=== PATIENT | female | born 1995 | race Caucasian/White ===

== ENCOUNTER 2019-10-14 15:18 | Emergency (ER) | payer OTHER ==
[~2019-10-14] VITALS: Ht 154.9 cm; Wt 54.4 kg
== END 2019-10-14 17:28 | disposition home or self-care (01) ==
LOC: ER 15:18
DX: N34.1 Nonspecific urethritis (principal)

== ENCOUNTER 2020-04-10 17:24 | Outpatient (CLI) | payer OTHER | END 2020-04-10 17:28 | disposition home or self-care (01) | LOC: RAD 17:24 | DX: R05 Cough (principal) ==

== ENCOUNTER 2020-12-05 09:00 | Outpatient (CLI) | payer OTHER | END 2020-12-05 09:30 | disposition home or self-care (01) | LOC: PPH VACUNA 09:00 | PROVIDERS: ATTEND Emergency Medicine Pediatric Emergency Medicine | DX: Z23 Encounter for immunization (principal) ==

== ENCOUNTER 2024-10-04 16:38 | Inpatient (IN) | payer OTHER ==
[~2024-10-04] VITALS: Ht 162.6 cm; Wt 54.4 kg
--- NOTE | 2024-10-04 16:54 | NUR ---
SE RECIBE PTE ALERTA Y ORIENTADA X3. REFIERE ARDOR Y DOLOR AL ORINAR Y MOLESTIA PELVICA HACE DOS RICHARDS
[2024-10-04] MEDS ORDERED: 0.9 % SODIUM CHLORIDE 1,000 ML IV ONE (19:45)
[2024-10-04] MEDS ORDERED: FAMOtidine 10 MG/ML (4ML VIAL) IV ONE (19:45)
[2024-10-04] MEDS ORDERED: ONDANSETRON HCL 2 MG/ML VIAL IV ONE (19:45)
[2024-10-04 21:38] LABS: URINE APPEARANCE Clear; URINE BILIRRUBIN Negative (NEGATIVE); URINE BLOOD Trace; URINE COLOR Yellow; URINE GLUCOSE Negative (NEGATIVE); URINE LEUKOCYTE Negative; URINE NITRATE Negative; URINE PROTEIN Negative (NEGATIVE); URINE UROBILINOGEN 0.2 E.U./dl
[2024-10-04 21:42] LABS: URINE BACTERIA 136.7 uL (0.0-1933); URINE EPITHELIAL CELLS 8.1 uL (0.0-38.8); URINE RBC 4.3 uL (0.0-20.8); URINE WBC 4.1 uL (0.0-23.2)
[2024-10-04 21:42] LABS: BASO % 0.4 % (0.1-1.2); EOS # 0.03 (0.04-0.54); EOS % 0.3 % (0.7-7.0); LYMPH # 2.40 (1.18-3.74); LYMPH % 21.4 % (19.3-53.1); MEAN PLATELET VOLUME 10.00 fl (9.4-12.4); MONO # 0.98 (0.24-0.82); MONO % 8.7 % (4.7-12.5); NEUT # 7.74 (1.56-6.13); NEUT % 68.9 % (34.0-71.1); RED CELL DISTRIBUTION WIDTH 14.2 % (11.6-14.4)
[2024-10-04 21:55] LABS: URINE CAST 0.00 uL (0.0-1.40); URINE KETONE 80 (NEGATIVE)
[2024-10-04 22:06] LABS: ALT/SGPT 22.0 U/L (12-78); AST/SGOT 35.0 U/L (15-37); BILIRUBIN TOTAL 1.53 mg/dL (0.3-1.2); BUN CREA RATIO 10.0 (7.0-25.0); CREATININE SERUM 0.7 mg/dL (0.55-1.02); GFR 98.93; GLOBULINA 3.9 G/DL (2.4-3.5); GLUCOSE FASTING 91.0 mg/dL (65-100); OSMOLALITY SERUM 271.0 MOSM/KG (275-295)
--- NOTE | 2024-10-04 22:50 | NUR ---
SE ORIENTA A PTE SOBRE [place] MEDICO, LA MISMA REFIERE ENTENDER Y ACEPTAR SOHAIL. SE COLECTAN MUESTRAS DE LABORATORIO BAJO MEDIDAS ASEPTICAS. SE CANALIZA A PTE RA #20 SANJUANITA DE EDEMA Y ERITEMA CON UN .9NSS BAJANDO A 250ML/HR. SE ADMINISTRAN MEDICAMENTOS TRUDY ORDEN MEDICA.
[2024-10-05 01:16] VITALS: BP 120/76
[2024-10-05] MEDS ORDERED: RINGERS SOLUTION,LACTATED 1,000 ML IV ONE (02:30)
[2024-10-05] MEDS ORDERED: KETOROLAC TROMETHAMINE 30 MG VIAL IV STA (02:31)
[2024-10-05 04:15] LABS: INR 1.17
[2024-10-05 04:25] LABS: BASO % 0.4 % (0.1-1.2); EOS # 0.07 (0.04-0.54); EOS % 0.7 % (0.7-7.0); LYMPH # 2.72 (1.18-3.74); LYMPH % 27.0 % (19.3-53.1); MEAN PLATELET VOLUME 10.30 fl (9.4-12.4); MONO # 0.86 (0.24-0.82); MONO % 8.5 % (4.7-12.5); NEUT # 6.36 (1.56-6.13); NEUT % 63.1 % (34.0-71.1); RED CELL DISTRIBUTION WIDTH 14.4 % (11.6-14.4)
[2024-10-05 05:41] LABS: LYMPHOCYTE MAN 17.0 %; MONOCYTE MAN 10.0 %; NEUTROPHILS MAN 66.0 %
[2024-10-05 07:46] VITALS: BP 96/62; O2SAT 99
[2024-10-05] MEDS ORDERED: CEFAZOLIN SODIUM 1,000 MG VIAL IV ONE (10:00)
[2024-10-05] MEDS ORDERED: MORPHINE SULFATE 4 MG/ML VIAL IV ONE (12:15)
[2024-10-05] MEDS ORDERED: MORPHINE SULFATE 4 MG/ML CARTRIDGE IV SCH (13:00)
[2024-10-05] MEDS ORDERED: KETOROLAC TROMETHAMINE 30 MG VIAL IV ONE (16:00)
[2024-10-05 17:00] LABS: BASO % 0.3 % (0.1-1.2); EOS # 0.03 (0.04-0.54); EOS % 0.3 % (0.7-7.0); LYMPH # 1.76 (1.18-3.74); LYMPH % 16.1 % (19.3-53.1); MEAN PLATELET VOLUME 10.30 fl (9.4-12.4); MONO # 0.88 (0.24-0.82); MONO % 8.1 % (4.7-12.5); NEUT # 8.18 (1.56-6.13); NEUT % 74.9 % (34.0-71.1); RED CELL DISTRIBUTION WIDTH 14.4 % (11.6-14.4)
[2024-10-05 17:16] VITALS: BP 111/70
[2024-10-05 21:05] VITALS: BP 109/72
[2024-10-06] VITALS: BP 107/65
[2024-10-06 04:30] VITALS: BP 110/66
[2024-10-06] MEDS ORDERED: OxyCODONE HCL 5 MG TABLET (ROXICODONE) PO SCH (05:00)
[2024-10-06 08:50] VITALS: BP 117/76; O2SAT 98
[2024-10-06] MEDS ORDERED: DOCUSATE SODIUM 100MG CAP PO SCH (09:00)
[2024-10-06] MEDS ORDERED: SIMETHICONE 125 MG CAPSULE PO SCH (09:00)
[2024-10-06 13:01] VITALS: BP 119/77; O2SAT 100
== END 2024-10-06 14:12 | disposition home or self-care (01) | DRG 743 ==
LOC: ER 16:38 → OB/GYN 10-05 06:56 → O/R 10-05 06:56 → OB/GYN 10-05 12:42
PROVIDERS: General Practice; Preventive Medicine Public Health & General Preventive Medicine; ADMIT Obstetrics & Gynecology; ATTEND Obstetrics & Gynecology
PROC: 0UB00ZZ Excision of Right Ovary, Open Approach (ICD-10-PCS; principal; 2024-10-05 08:00)
DX: N83.11 Corpus luteum cyst of right ovary (principal); D64.9 Anemia, unspecified